=== PATIENT | female | born 1970 | race Caucasian/White ===

== ENCOUNTER 2020-05-30 12:50 | Outpatient (CLI) | payer BC, SELFPAY ==
--- NOTE | 2020-05-30 12:58 | MM_ITS ---
WS: [id number] BILATERAL DIGITAL SCREENING MAMMOGRAPHY WITH CAD CLINICAL INFORMATION: SCREENING HISTORY: Screening mammogram. No current complaints. COMPARISON: TECHNIQUE: Bilateral CC and MLO views. FINDINGS: The breasts are composed of heterogeneous fibroglandular density tissue, which can limit the detectio n of small underlying mass lesions. A few benign punctate calcifications. No suspicious mass, asymmet ry, calcifications, or architectural distortion. No evidence of malignancy. MM/[id number] IMPRESSION: BI-RADS: 2-Benign FOLLOW UP: 1 Year Follow-up Recommend return to annual screening mammography.
== END 2020-05-30 12:51 | disposition home or self-care (01) ==
LOC: RADSHAW 12:52
PROVIDERS: PCP Family Medicine; Visit Provider Obstetrics & Gynecology
DX: Z12.31 Encounter for screening mammogram for malignant neoplasm of breast (principal)
CPT/HCPCS: 77067

== ENCOUNTER → 2020-07-18 10:39 | Outpatient (BNVA) | payer BC, SELFPAY | PROVIDERS: PCP Family Medicine; Visit Provider Obstetrics & Gynecology | DX: Z01.419 Encounter for gynecological examination (general) (routine) without abnormal findings (principal) | CPT/HCPCS: 80048; 80061; 83036; 84443; 85025; 88175 ==

== ENCOUNTER 2021-09-25 11:14 | Outpatient (CLI) | payer BC, SELFPAY ==
--- NOTE | 2021-09-25 11:20 | MM_ITS ---
WS: [id number] BILATERAL SCREENING DIGITAL BREAST TOMOSYNTHESIS MAMMOGRAM WITH CAD HISTORY: SCREENING COMPARISON: 05/30/2020 and 05/02/2017 Bilateral CC and MLO views with tomosynthesis and synthetic mammography submitted. Computer aided det ection analyzed. Breast composition: There are scattered areas of fibroglandular density. No suspicious masses, microc alcifications or architectural distortion. MM/[id number] IMPRESSION: BI-RADS: 1-Negative FOLLOW UP: 1 Year Follow-up
== END 2021-09-25 11:15 | disposition home or self-care (01) ==
PROVIDERS: PCP Family Medicine; Visit Provider Family Medicine
DX: Z12.31 Encounter for screening mammogram for malignant neoplasm of breast (principal)
CPT/HCPCS: 77063; 77067

== ENCOUNTER 2022-03-01 06:27 | Outpatient (CLI) | payer BC, SELFPAY ==
--- NOTE | 2022-03-01 | USCV_ITS ---
RobbinPaloma Age: 51 Gender: F : 1970 Exam Date: 03/01/2022 06:43 Ordering Phys: Xavi Carrion MD Technologist: Claudia Israel [place] [facility] [place]: Legs swelling with SOB BP: 122 / 78 HR: 75 Rhythm: Sinus Technical Quality: Adequate MEASUREMENTS (Male / Female) Normal Values 2D ECHO LV Diastolic Diameter PLAX 3.4 cm 4.2 - 5.9 / 3.9 - 5.3 cm LV Systolic Diameter PLAX 2.2 cm LV Chamber Size 4.8 cm IVS Diastolic Thickness 1.2 cm 0.6 - 1.0 / 0.6 - 0.9 cm IVS Systolic Thickness 1.5 cm LVPW Diastolic Thickness 1.6 cm 0.6 - 1.0 / 0.6 - 0.9 cm LVPW Systolic Thickness 1.5 cm RV Chamber Size 3.2 cm LVOT Diameter 2.1 cm LV Ejection Fraction 2D Teich 63.1 % LV Ejection Fraction MOD 2C 56.7 % LV Ejection Fraction 2C AL 55.7 % LA Diameter 3.4 cm LA Width 3.2 cm LA Height 2.3 cm RA Width 4.0 cm RA Height 4.3 cm Aorta at Sinotubular Diameter 2.6 cm IVC Diameter 1.5 cm M-MODE Aortic Annulus Diameter 3.2 cm LA Ao Ratio MM 1.2 MV E Point Septal Separation 0.2 cm DOPPLER AV Peak Velocity 134.0 cm/s LVOT Peak Velocity 106.0 cm/s AV Area Cont Eq vti 2.3 cm squared AV Area Cont Eq pk 2.7 cm squared MV Area PHT 3.9 cm squared Mitral E to A Ratio 1.6 MV E' Velocity 48.0 cm/s Mitral E to MV E' Ratio 5.2 Mitral E to LV E' Lateral Ratio 5.2 Mitral E to LV E' Septal Ratio 5.3 TR Peak Velocity 203.1 cm/s TR Peak Gradient 16.5 mmHg TR Mean Velocity 179.0 cm/s TR Mean Gradient 14.9 mmHg TR Velocity Time Integral 69.0 cm TV Peak E Velocity 90.0 cm/s Right Atrial Pressure 3.0 mmHg Pulmonary Artery Systolic Pressu 19.5 mmHg RV Acceleration Time 0.2 s RV Ejection Time 0.4 s RV AcT/ET 0.5 FINDINGS Left Ventricle Left ventricle is normal in size. LV systolic function is normal with EF of 55 to 60%. No regional wall motion abnormalities are seen. Diastolic function is normal Right Ventricle Normal in size and function Right Atrium Normal in size Left Atrium Normal in size Mitral Valve Structurally normal mitral valve.No significant stenosis or regurgitation. Aortic Valve Structurally normal aortic valve. No significant stenosis or regurgitation. Tricuspid Valve Mild tricuspid regurgitation. Pulmonary artery systolic pressure is normal Pulmonic Valve Not well-visualized Pericardium Normal Aorta Normal in size IVC Appears to be normal CONCLUSIONS LV systolic function is normal with EF of 55-60% Diastolic function is normal Mild tricuspid regurgitation No comparison studies are available Tian Gonzalez MD (Electronically Signed) Final Date: 01 March 2022 09:03 S
== END 2022-03-01 06:28 | disposition home or self-care (01) ==
LOC: RAD 06:27
PROVIDERS: PCP Family Medicine; Visit Provider Family Medicine
DX: R07.9 Chest pain, unspecified (principal); M79.89 Other specified soft tissue disorders; R06.02 Shortness of breath; I07.1 Rheumatic tricuspid insufficiency
CPT/HCPCS: 93306

== ENCOUNTER → 2022-08-02 13:57 | Outpatient (BNVA) | payer BC, SELFPAY | PROVIDERS: PCP Family Medicine; Visit Provider Podiatrist Foot & Ankle Surgery | DX: M20.5X1 Other deformities of toe(s) (acquired), right foot (principal) | CPT/HCPCS: 73630 ==

== ENCOUNTER 2022-09-27 08:56 | Outpatient (CLI) | payer BC, SELFPAY ==
--- NOTE | 2022-09-27 09:40 | MM_ITS ---
WS: [id number] VIEWS: MLO and CC views both breasts. 3D digital tomosynthesis is also included in this exam. Comparison made with prior exam of 05/02/2017, 05/30/2020, 09/25/2021.. Findings: There was no sign of mass, architectural distortion or suspicious calcification in either breast. Th ere are scattered areas of fibroglandular density MM/[place] [id number] Impression: BI-RADS: 2-Benign finding. FOLLOW-UP: 1 Year Follow-up This mammogram was also analyzed by the Computer Aided Detection System R2 Imag e Automatic Pad Making Machine Operator.
== END 2022-09-27 08:57 | disposition home or self-care (01) ==
LOC: RAD 08:59 → MOBLMAM 09:41
PROVIDERS: PCP Family Medicine; Visit Provider Nurse Practitioner Women's Health
DX: Z12.31 Encounter for screening mammogram for malignant neoplasm of breast (principal)
CPT/HCPCS: 77063; 77067

== ENCOUNTER 2023-03-04 06:26 | Day surgery (SDC) | payer BC, SELFPAY ==
[2023-03-04] VITALS (7 sets, daily range): BP systolic 88–104; BP diastolic 42–73; PULSE 65–82; RESP 16–18; TEMP 36.6; O2SAT 94–100; BMI 30.5
[2023-03-04] MEDS: sodium chloride 0.9% 1,000 ML 30 ML IV (07:21)
--- NOTE | 2023-03-04 08:09 | ANES.PREANE2 ---
Pre-Anesthetic Assessment Height/Weight: Height 1.7 m Weight 88.451 kg O2 Del Method Room Air 03/04/23 06:59 Preop Diagnosis: Right third hammertoe Operation Date: 03/04/23 08:00 Proposed Procedures p Flexor tendon transfer right foot and Right third hammertoe correction [id number],M20.5X1, M24.57(Right) - Davian Florian DPM Familial anesthetic complications: none Was Beta Maddy taken within 24 hours: N/A Was Clonidine taken within 24 hours: N/A Last intake: Intake Last Liquid Date 03/03/23 Last Liquid Time 23:55 Last Solid Date 03/03/23 Last Solid Time 20:00 Social No alcohol and No tobacco Exam alert, oriented x 3, clear to auscultation bilaterally and regular rate & rhythm Airway Submandibular: within normal limits Cervical ROM: within normal limits Mallampati: Class II Dentition: full History/ROS No significant history except as noted Anesthetic Plan ASA status: 1 Anesthesia: Choice Medications/Allergies Home Medications Medication Instructions Recorded Confirmed Last Taken Type ascorbate calcium (vitamin C) 500 500 mg PO DAILY 07/18/20 03/03/23 Unknown History mg tablet aspirin 81 mg chewable tablet 81 mg PO DAILY 07/18/20 03/03/23 02/24/23 History (Harpreet Chewable Low Dose Aspirin) calcium carbonate 600 mg-vitamin cap PO 07/18/20 02/23/23 Unknown History D3 12.5 mcg (500 unit) capsule (Calcium 600 with Vitamin D3) cetirizine 10 mg tablet (Zyrtec) 10 mg PO DAILY 07/18/20 03/04/23 03/04/23 History fluticasone propionate 50 1 spray intranasal DAILY 07/18/20 03/04/23 03/03/23 History mcg/actuation nasal spray,suspension multivitamin 1 tab PO DAILY 07/18/20 03/03/23 Unknown History evening primrose oil 500 mg capsule 500 mg PO DAILY 10/30/21 03/03/23 Unknown History furosemide 20 mg tablet (Lasix) 20 mg PO QAM 10/30/21 03/04/23 03/03/23 History potassium chloride 10 mEq 10 meq PO DAILY 10/30/21 03/04/23 03/03/23 History capsule,extended release dapsone 7.5 % topical gel with 1 applic topical DAILY #90 grams 12/01/22 03/04/23 03/03/23 Rx pump (Aczone) estradiol 0.01% (0.1 mg/gram) 1 g vaginal DAILY #42.5 grams 12/01/22 03/04/23 03/03/23 Rx vaginal cream estradiol 1 mg tablet 1 mg PO DAILY #90 tabs 12/01/22 03/04/23 03/03/23 Rx medroxyprogesterone 5 mg tablet 5 mg PO DAILY #90 tabs 12/01/22 03/04/23 03/03/23 Rx (Provera) tazarotene 0.1 % topical cream 1 applic topical DAILY PRN acne 12/01/22 03/03/23 Unknown Rx #30 grams Allergies Allergy/AdvReac Type Severity Reaction Status Date / Time No Known Allergies Allergy Verified 02/23/23 15:24 Current Medications Generic Name Dose Route Start Last Admin Trade Name Freq PRN Reason Stop Dose Admin Sodium Chloride 1,000 mls @ 30 mls/hr 03/04/23 07:00 03/04/23 07:21 Sodium Chloride 0.9% IV 03/05/23 06:59 30 mls/hr .Q24H STEPHANIE Administration PFSH Anesthesia Medical History No pertinent past medical history neghx: htn,dm,thyroid,dvt/pe PCP: Dr. Carrion Family history of breast cancer Mother diagnosed at age 84. Triple negative cancer. Surgical History H/O arthroscopic knee surgery (~1988) Right H/O arthroscopic knee surgery (~2010) Right History of trigger finger (~2010) Release 2010 History of endometrial ablation (10/01/05) Hysteroscopic rollerball endometrial ablation and posterior vaginal repair. Dx: Menorrhagia, Rectocele. Performed by Dr. Suresh Tavera at [facility] in [place], [place]. Family History Mother Hypertension Breast cancer DX: 83. Triple negative. Father Diabetes CAD (coronary artery disease) Hyperlipidemia Grandfather CAD (coronary artery disease) Maternal Grandmother CAD (coronary artery disease) Maternal Grandmother Stroke Maternal Family/Other Endometrial cancer Maternal aunt--dx age 70's Denies family history of Colon cancer Ovarian cancer Thyroid disease Data Anesthesia Cardiac Studies: Echocardiogram 03/01/22
--- NOTE | 2023-03-04 08:15 | W.PM.OPSUD ---
Surgery/Procedure H&P Update DATE OF PROCEDURE: March 04, 2023 DATE H&P PERFORMED: 02/23/23 H&P UPDATE INFORMATION: I have reviewed H&P completed within last 30 days, I have examined patient prior to procedure, No changes to prior documentation and H&P is in [facility] [place] on date indicated PREOP DIAGNOSIS: Right third hammertoe PLANNED PROCEDURE: Operation Date: 03/04/23 08:00 Proposed Procedures p Flexor tendon transfer right foot and Right third hammertoe correction [id number],M20.5X1, M24.57(Right) - Davian Florian DPM
[2023-03-04] MEDS: ceFAZolin 2,000 MG in sodium chloride 0.9% (plus) 50 ML 100 MG IV (08:18)
[2023-03-04] MEDS: BUPivacaine 0.5% INJ 10 mL INJECTION (08:32)
[2023-03-04] MEDS: BUPivacaine liposome 13.3 mg/mL SDV 10 mL 133 MG INFILTRATI (08:32)
--- NOTE | 2023-03-04 09:17 | PM.OP ---
Operative Report Date of procedure: March 04, 2023 Pre-op diagnosis: Right third hammertoe deformity. Right foot flexor tendon contracture. Post-op diagnosis: Same Procedure done: Flexor tendon transfer right foot. CPT code 69530 Right third hammertoe correction. CPT code 20779 Implants: 0.062 K wire, 4-0 Vicryl, 4-0 nylon Surgeon: Davian Florian DPM Supervisor Slitting And Shipping: Emily Wilson Estimated blood loss: 1 25 IV fluids: 0 Urine output: 0 Brief History: Mrs. Siegel is here today to update her H&P prior to upcoming hammer toe correction surgery of the left 3rd toe on 03/04/23. She has pain at the left third toe on a daily basis with everyday activities such as standing walking and wearing shoes and is prepared for correction has taken time off work and made arrangements for recovery. She has failed conservative measures as previously outlined consisting of accommodative shoes, spacing, padding and anti-inflammatories along with activity modifications. Patient denies any subjective nausea, vomiting, fever, chills, shortness of breath or chest pain. I reviewed at length with the patient, the risks, potential complications, benefits, alternatives, expectations, and typical outcomes associated with the surgery. The risks and potential complications were explained in detail, including but not limited to infection, wound dehiscence or soft tissue complications, bleeding and hematoma, chronic edema, neuritis or nerve damage producing numbness or chronic pain, CRPS, failure to relieve pain or worsening pain, thick / painful / unsightly scar, limited motion / stiffness, malposition, delayed union, malunion, or nonunion, fracture, reaction to implants, anesthetic complications, venous thromboembolism, and deformity recurrence. I discussed the notion of no regrets with the patient as it pertains to complications and outcomes. The patient seemed to understand the nature of the proposed care and required convalescence. They asked appropriate questions, answered to their satisfaction. They are aware no guarantees can be made as to a satisfactory outcome and they understand there may be other possible unforeseen complications or outcomes not listed here that will be treated accordingly if they arise. There were no written or implied guarantees given to the patient. They gave informed consent to proceed. Procedure: Under mild sedation the patient was brought to the operating room and remained on the gurney in supine position. A timeout was performed. Anesthesia was then administered by the anesthesia service. Local anesthesia was injected by myself consisting of 10 cc of 0.5% Marcaine plain and a right third ray block. Additional 10 cc of Exparel infiltrated subcutaneously at the operative site. Well-padded pneumatic tourniquet was applied to the right ankle. The right lower extremity was scrubbed, prepped and draped utilizing normal aseptic technique. Right foot was exanguinated with an Esmarch bandage and tourniquet inflated to 250 mmHg. Attention was directed to the dorsal aspect of the right third toe which was noted to have a contracture in all 3 planes, a linear longitudinal incision made over the dorsal aspect of the right third toe encompassing the distal and proximal interphalangeal joints. Dissection is carried down to the extensor tendon which was transected at the level of the distal interphalangeal joint and retracted proximally and held with a mosquito hemostat. The base of the distal phalanx and intermediate phalanx as well as the head of the proximal phalanx and intermediate phalanx were denuded of the articular surface perpendicular to the longitudinal axis. The proximal phalange joint was distracted and the flexor digitorum longus tendon with contracture was split longitudinally and transected at its most distal margin, longitudinal split bisection was then wrapped both medially and laterally over the dorsum of the diaphyseal portion of the proximal phalanx of the right third toe and secured with 4-0 nylon effectively performing a deep flexor tendon transfer with excellent correction in the sagittal plane of the contracture. The incision was irrigated saline solution. A K wire was then driven intramedullary of the distal, intermediate and proximal phalanx topping at the base of the proximal phalanx not crossing the metatarsal phalangeal joint this was confirmed to have excellent placement in all 3 planes in the AP, bleak and lateral view of without violating the third metatarsal phalangeal joint with intraoperative fluoroscopy. Extensor tendon was reapproximated. Right third toe is rectus in all 3 planes AP, oblique and lateral view and under direct visualization in the frontal, transverse and sagittal plane. K wire was trimmed and the tip was covered with a Devan ball. Further irrigation was performed and skin was reapproximated utilizing 4-0 nylon. Incision was dressed with Adaptic, sterile 4 x 4's, Kerlix and Derian wrap followed by application of a cam boot to the right lower extremity. Tourniquet was then deflated and a prompt hyperemic response was noted to the distal digits of the right foot. Patient tolerated the procedure and anesthesia well and was transferred to the PACU with vital signs stable and vascular status intact. Following a period of postoperative monitoring she will be discharged home is to limit her activity, rest and elevate, may be weightbearing as tolerated with a cam boot below threshold of pain. Was given at home care instructions, scheduled follow-up and my cell phone number to contact me with any postoperative questions or concerns.
--- NOTE | 2023-03-04 09:19 | W.PM.BPON ---
Date of Procedure: 03/04/23 Surgeon: Davian Florian DPM Cutting Table Operator(s): Emily Procedure(s) performed: Right third hammertoe correction with tendon transfer Findings of the procedure(s): None Estimated blood loss: 1 mL Specimen(s) removed: None Post-operative diagnosis: Right third hammertoe
--- NOTE | 2023-03-04 14:05 | ANE.PACU2 ---
Inpatient post-anesthesia follow up: Airway intact: Yes Vital signs: Temperature 97.8 F Pulse Rate 65 Respiratory Rate 16 Blood Pressure 104/73 Pulse Oximetry 100 Oxygen Delivery Me thod Room Air Oxygen Flow Rate 6 Fraction of Inspir ed Oxygen Hydration adequate: Yes Nausea and vomiting: No Pain level: 1 Mental status: Baseline
--- NOTE | 2023-03-08 | XR_ITS ---
WS: [id number] INTRAOPERATIVE TECHNIQUE: 2 Spot fluoroscopic images for intraoperative purposes. FLUOROSCOPY TIME: 4 seconds CLINICAL INFORMATION: Tendon transfer, or pic COMPARISON: None. FINDINGS: External fixation wire extending into the third proximal phalanx. Forceps overlying the third proxima l phalanx. IMPRESSION: Images obtained for intraoperative purposes..
== END 2023-03-04 10:40 | disposition home or self-care (01) ==
PROVIDERS: PCP Family Medicine; Visit Provider Podiatrist Foot & Ankle Surgery
PROC: (CPT 27691; principal; 2023-03-04 08:00)
DX: M20.41 Other hammer toe(s) (acquired), right foot (principal); M62.471 Contracture of muscle, right ankle and foot; Z79.82 Long term (current) use of aspirin
CPT/HCPCS: 27691; 28285; 73620; 76000; C1713; C9290; J0690; J2250; J2704; J3490; J7030

== ENCOUNTER → 2023-03-17 13:18 | Outpatient (BNVA) | payer BC, SELFPAY | PROVIDERS: PCP Family Medicine; Visit Provider Podiatrist Foot & Ankle Surgery | DX: Z98.890 Other specified postprocedural states (principal); M20.5X2 Other deformities of toe(s) (acquired), left foot | CPT/HCPCS: 73630 ==

== ENCOUNTER → 2023-03-31 15:22 | Outpatient (BNVA) | payer BC, SELFPAY | PROVIDERS: PCP Family Medicine; Visit Provider Podiatrist Foot & Ankle Surgery | DX: Z98.890 Other specified postprocedural states (principal); M20.5X2 Other deformities of toe(s) (acquired), left foot | CPT/HCPCS: 73630 ==

== ENCOUNTER → 2023-04-14 15:22 | Outpatient (BNVA) | payer BC, SELFPAY | PROVIDERS: PCP Family Medicine; Visit Provider Podiatrist Foot & Ankle Surgery | DX: Z98.890 Other specified postprocedural states (principal); M20.5X2 Other deformities of toe(s) (acquired), left foot; Z87.39 Personal history of other diseases of the musculoskeletal system and connective tissue | CPT/HCPCS: 73630 ==

== ENCOUNTER → 2023-04-28 15:44 | Outpatient (BNVA) | payer BC, SELFPAY | PROVIDERS: PCP Family Medicine; Visit Provider Podiatrist Foot & Ankle Surgery | DX: Z98.890 Other specified postprocedural states (principal); G57.61 Lesion of plantar nerve, right lower limb; Z87.39 Personal history of other diseases of the musculoskeletal system and connective tissue | CPT/HCPCS: 73630 ==

== ENCOUNTER 2023-06-08 07:49 | Outpatient (CLI) | payer BC, SELFPAY ==
--- NOTE | 2023-06-08 08:00 | MR_ITS ---
WS: [id number] MRI RIGHT FOOT WITHOUT CONTRAST. COMPARISON: Radiograph 04/28/2023 Multiplanar, multisequence imaging is performed without contrast. No acute fractures. Changes in the third toe from recent pin removal. Very mild narrowing of the firs t metatarsophalangeal joint. The 3 bands of the Lisfranc ligament are normal. No widening or abnormality along the Lisfranc articu lation. 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 There is a small amount of increased fluid in the second intermetatarsal space suggesting a mild burs itis. There is no mass or Zaragoza's neuroma identified. The fourth intermetatarsal bursa is also sligh tly prominent and distended. No marrow edema. Medial and lateral collateral ligaments are normal. No signal abnormality along the neurovascular bundles. IMPRESSION: 1. No acute fractures or displacement. 2. Very mild distention of the second and fourth intermetatarsal bursas. 3. No Zaragoza neuroma identified. Neurovascular bundles are negative. 4. 3 bands of the Lisfranc ligament are normal.
== END 2023-06-08 07:50 | disposition home or self-care (01) ==
LOC: RAD 07:49
PROVIDERS: PCP Family Medicine; Visit Provider Podiatrist Foot & Ankle Surgery
DX: G57.61 Lesion of plantar nerve, right lower limb (principal)
CPT/HCPCS: 73718

== ENCOUNTER 2023-08-31 13:09 | Outpatient (RCR) | payer BC, SELFPAY | END 2023-09-11 23:59 | disposition home or self-care (01) | LOC: SPT 13:09 | PROVIDERS: PCP Family Medicine; Visit Provider Family Medicine | DX: M25.571 Pain in right ankle and joints of right foot (principal) | CPT/HCPCS: 97110; 97161 ==

== ENCOUNTER 2023-09-12 06:00 | Outpatient (RCR) | payer BC, SELFPAY | END 2023-10-12 23:59 | disposition home or self-care (01) | LOC: SPT 06:00 | PROVIDERS: PCP Family Medicine; Visit Provider Family Medicine | DX: M25.571 Pain in right ankle and joints of right foot (principal) | CPT/HCPCS: 97110; 97112 ==

== ENCOUNTER 2023-10-13 06:00 | Outpatient (RCR) | payer BC, SELFPAY | END 2023-10-25 23:59 | disposition home or self-care (01) | LOC: SPT 06:00 | PROVIDERS: PCP Family Medicine; Visit Provider Family Medicine | DX: M25.571 Pain in right ankle and joints of right foot (principal) | CPT/HCPCS: 97110 ==

== ENCOUNTER → 2024-02-07 13:35 | Outpatient (BNVA) | payer BC, SELFPAY | PROVIDERS: PCP Family Medicine; Visit Provider Nurse Practitioner Women's Health | DX: Z00.00 Encounter for general adult medical examination without abnormal findings (principal) | CPT/HCPCS: 87624 ==

== ENCOUNTER 2024-02-17 14:48 | Outpatient (CLI) | payer BC, SELFPAY ==
--- NOTE | 2024-02-17 15:30 | MM_ITS ---
WS: [email or web address] BILATERAL 3D TOMOSYNTHESIS DIGITAL SCREENING MAMMOGRAPHY WITH CAD CLINICAL INFORMATION: Z12.31 - Encounter for screening mammogram for malignant ... HISTORY: Screening mammogram. No current complaints. COMPARISON: 2022 TECHNIQUE: Bilateral CC and MLO views. FINDINGS: The breasts are composed of heterogeneous fibroglandular density tissue, which can limit the detectio n of small underlying mass lesions. No suspicious mass, asymmetry, calcifications, or architectural d istortion. No evidence of malignancy. Bilateral incidental punctate calcifications. MM/MM [facility] tomosynthesis [id number] IMPRESSION: DENSITY: The breasts are heterogeneously dense, which may obscure small masses. BI-RADS: 2 - Benign FOLLOW UP: 1 Year Follow-up Recommend return to annual screening mammography.
== END 2024-02-17 14:49 | disposition home or self-care (01) ==
LOC: RAD 14:48
PROVIDERS: PCP Family Medicine; Visit Provider Nurse Practitioner Women's Health
DX: Z12.31 Encounter for screening mammogram for malignant neoplasm of breast (principal); R92.333 Mammographic heterogeneous density, bilateral breasts; R92.1 Mammographic calcification found on diagnostic imaging of breast
CPT/HCPCS: 77063; 77067

== ENCOUNTER → 2025-02-13 11:13 | Outpatient (BNVA) | payer BC, SELFPAY | PROVIDERS: PCP Family Medicine; Visit Provider Nurse Practitioner Women's Health | DX: R53.83 Other fatigue (principal); Z13.220 Encounter for screening for lipoid disorders | CPT/HCPCS: 80053; 80061; 82306; 82607; 82670; 82728; 82746; 83036; 83540; 84270; 84402; 84403; 84443; 85025 ==

== ENCOUNTER 2025-03-04 13:18 | Outpatient (CLI) | payer BC, SELFPAY ==
--- NOTE | 2025-03-04 13:24 | MM_ITS ---
WS: [id number] BILATERAL 3D TOMOSYNTHESIS DIGITAL SCREENING MAMMOGRAPHY WITH CAD CLINICAL INFORMATION: SCREENING MAMMOGRAM HISTORY: Screening mammogram. No current complaints. COMPARISON: 2023 TECHNIQUE: Bilateral CC and MLO views. FINDINGS: The breasts are composed of heterogeneous fibroglandular density tissue, which can limit the detection of small underlying mass lesions. No suspicious mass, asymmetry, calcifications, or architectural distortion. No evidence of malignancy. MM/MM scr tomosynthesis [id number] IMPRESSION: DENSITY: The breasts are heterogeneously dense, which may obscure small masses. BI-RADS: 1 - Negative FOLLOW UP: 1 Year Follow-up Recommend return to annual screening mammography.
--- NOTE | 2025-03-04 14:00 | XR_ITS ---
WS: [id number] DEXA (DUAL ENERGY X-RAY ABSORPTIOMETRY) Bone mineral density was performed using a Omegawave machine. HISTORY: Z13.820 - Encounter for screening for osteoporosis COMPARISON: None available. Lumbar spine BMD (L1-L4): 0.955 g/cm2 T score: -1.9 Z score: -2.0 Total hip BMD: Left: 0.875 g/cm2. T score: -1.1 Z score: -1.0 Right: 0.821 g/cm2. T score: -1.5 Z score: -1.5 10 year probability of a major osteoporotic fracture is 12.5%. XR/XR DEXA axial skeleton* [id number] IMPRESSION: OSTEOPENIA based upon the WHO classification for females.
== END 2025-03-04 13:19 | disposition home or self-care (01) ==
PROVIDERS: PCP Family Medicine; Visit Provider Nurse Practitioner Women's Health
DX: Z12.31 Encounter for screening mammogram for malignant neoplasm of breast (principal); Z13.820 Encounter for screening for osteoporosis; Z78.0 Asymptomatic menopausal state; M85.88 Other specified disorders of bone density and structure, other site; R92.333 Mammographic heterogeneous density, bilateral breasts; R92.323 Mammographic fibroglandular density, bilateral breasts
CPT/HCPCS: 77063; 77067; 77080